=== PATIENT | male | born 1965 | race African-American/Black ===

== ENCOUNTER 2022-02-17 09:32 | Emergency (ER) | payer SELFPAY ==
[~2022-02-17] VITALS: Ht 175.3 cm; Wt 78.0 kg
[2022-02-17 09:52] VITALS: BP 182/112
[2022-02-17] MEDS ORDERED: SULF1TAB48 PO (11:20)
[2022-02-17] MEDS ORDERED: DIF15 MT (11:20)
[2022-02-17] MEDS ORDERED: CLOT15CR27 TP (11:20)
== END 2022-02-17 14:29 | disposition home or self-care (01) ==
LOC: ER 09:32
DX: B35.3 Tinea pedis (principal); L01.00 Impetigo, unspecified; I10 Essential (primary) hypertension
CPT/HCPCS: 99283